=== PATIENT | male | born 1960 | race Caucasian/White ===

== ENCOUNTER 2020-04-13 03:00 | Inpatient (IN) | payer OTHER, MEDICAID ==
[~2020-04-13] VITALS: Ht 185.4 cm; Wt 96.2 kg
[2020-04-13 04:07] LABS: BG BASE EXCESS -6.1 mmol/L (-2.0-2.0); BG DEOXYHEMOGLOBIN 4.7 % (0.0-5.0); BG FRACTION INSPIRED OXYGEN 36; BG HCO3 ACT 17.6 mmol/L (22.0-26.0); BG METHEMOGLOBIN 0.4 % (0.0-1.5); BG OXYGEN SATURATION 95.2 % (92.0-98.5); BG OXYHEMOGLOBIN 93.9 % (94.0-97.0); BG PCO2 30.2 mmHg (35.0-45.0); BG PH 7.383 (7.350-7.450); BG PO2 78.6 mmHg (75.0-100.0); BG SAMPLE SITE RIGHT RADIAL; BG TOTAL HEMOGLOBIN 15.1 g/dL (12.0-18.0); BG VENT MODE NASAL CANNULA
[2020-04-13 04:23] LABS: BASOPHILS % 0.7 % (0.0-2.0); EOSINOPHILS % 2.3 % (0.0-5.0); HEMATOCRIT. 42.1 % (42.0-52.0); LYMPHOCYTES % 22.3 % (20.0-50.0); MEAN CORPUSCULAR HEMOGLOBIN 29.3 pg (28.0-32.0); MEAN CORPUSCULAR VOLUME 87.9 fL (80.0-94.0); MEAN PLATELET VOLUME 8.7 fl (7.4-10.4); MONOCYTES % 6.5 % (2.0-8.0); NEUTROPHILS % 68.2 % (40.0-76.0); PLATELET 241 x1000/uL (130-400); RED BLOOD CELL COUNT 4.79 mill/uL (4.7-6.1)
[2020-04-13 04:31] LABS: CHLORIDE 107 mEq/L (98-107)
[2020-04-13 04:39] LABS: PROTHROMBIN TIME 10.8 sec (9.6-11.0)
[2020-04-13] MEDS ORDERED: CEFTRIAXONE 1 G PREMIX 50 ML IV ONE (04:45)
[2020-04-13] MEDS ORDERED: AZITHROMYCIN 500 MG TABLET PO ONE (04:45)
[2020-04-13] MEDS ORDERED: FUROSEMIDE 40MG/4ML VIAL IVP SCH (05:30)
[2020-04-13 09:50] LABS: CLARITY URINE CLEAR (CLEAR); COLOR URINE YELLOW (YELLOW); KETONES URINE TRACE (NEGATIVE); LEUKOCYTE ESTERASE URINE NEGATIVE (NEGATIVE); NITRITE URINE NEGATIVE (NEGATIVE); OCCULT BLOOD URINE 1+ (NEGATIVE); PROTEIN URINE 3+ (NEGATIVE); SPECIFIC GRAVITY URINE 1.029 (1.005-1.030); UROBILINOGEN URINE 0.2 E.U./dL (0.2-1.0)
[2020-04-13] MEDS ORDERED: DEXTROSE 50% WATER 50ML SYRINGE IV PRN (10:15)
[2020-04-13] MEDS: BLOOD SUGAR DIAGNOSTIC STRIP TEST SCH ×4 (12:19→20:37)
[2020-04-13] MEDS: LOSARTAN POTASSIUM 50 MG TABLET PO SCH (12:20)
[2020-04-13] MEDS: INSULIN LISPRO 100 UNITS/ML SUBCUT SCH ×3 (12:29→20:43)
[2020-04-13] MEDS ORDERED: ACETAMINOPHEN 325MG TABLET PO PRN (17:30)
[2020-04-13] MEDS ORDERED: ONDANSETRON HCL 4MG/2ML INJ IV PRN (17:30)
[2020-04-13] MEDS ORDERED: ENOXAPARIN 100MG/ML SYR SUBCUT SCH (18:00)
[2020-04-13] MEDS ORDERED: ALBUTEROL 6.7GM HFA INHALER ORI SCH (18:00)
[2020-04-13 20:00] VITALS: BP 155/94
[2020-04-13] MEDS ORDERED: IPRATROPIUM/ALBUTEROL 0.5-3(2.5)MG/3ML NEB HHN PRN (20:00)
[2020-04-13 20:02] LABS: BASOPHILS % 1.2 % (0.0-2.0); EOSINOPHILS % 3.4 % (0.0-5.0); HEMATOCRIT. 41.8 % (42.0-52.0); HEMOGLOBIN. 14.1 g/dL (14.0-18.0); LYMPHOCYTES % 32.6 % (20.0-50.0); MEAN CORPUSCULAR HEMOGLOBIN 29.4 pg (28.0-32.0); MEAN CORPUSCULAR VOLUME 87.4 fL (80.0-94.0); MEAN PLATELET VOLUME 8.6 fl (7.4-10.4); MONOCYTES % 9.6 % (2.0-8.0); NEUTROPHILS % 53.2 % (40.0-76.0); PLATELET 193 x1000/uL (130-400); RED BLOOD CELL COUNT 4.78 mill/uL (4.7-6.1); RED CELL DISTRIBUTION WIDTH 14.2 % (11.6-14.6)
[2020-04-13] MEDS: FUROSEMIDE 40MG/4ML VIAL IVP SCH (20:37)
[2020-04-13] MEDS: ENOXAPARIN 40MG/0.4ML SYR SUBCUT SCH (20:42)
[2020-04-13] MEDS ORDERED: INSULIN GLARGINE UD 100 UNITS/ML SYR SUBCUT SCH (22:00)
[2020-04-14] VITALS: BP 145/92
[2020-04-14] MEDS: INSULIN GLARGINE UD 100 UNITS/ML SYR SUBCUT SCH ×3 (00:35→22:14)
[2020-04-14 04:00] VITALS: BP 124/73
[2020-04-14] MEDS: BLOOD SUGAR DIAGNOSTIC STRIP TEST SCH ×4 (04:36→21:00)
[2020-04-14 08:00] VITALS: BP 143/93
[2020-04-14] MEDS ORDERED: DEXAMETHASONE 10 MG/ML VIAL PO SCH (09:00)
[2020-04-14] MEDS ORDERED: ASPIRIN 81MG TABLET PO SCH (09:00)
[2020-04-14] MEDS: LOSARTAN POTASSIUM 50 MG TABLET PO SCH (09:32)
[2020-04-14] MEDS: AZITHROMYCIN 500 MG TABLET PO SCH (09:32)
[2020-04-14] MEDS: CEFTRIAXONE 1,000 MG in DEXTROSE 5% WATER 50 ML IV SCH (09:32)
[2020-04-14] MEDS: FUROSEMIDE 40MG/4ML VIAL IVP SCH ×2 (09:32→22:18)
[2020-04-14] MEDS: INSULIN LISPRO 100 UNITS/ML SUBCUT SCH ×4 (09:33→22:13)
[2020-04-14 09:36] LABS: *AMPHETAMINES SCREEN URINE NEGATIVE (NEGATIVE); *BENZODIAZEPINES SCREEN URINE NEGATIVE (NEGATIVE); *COCAINE SCREEN URINE NEGATIVE (NEGATIVE)
[2020-04-14 09:37] LABS: CANNABINOID URINE SCREEN NEGATIVE (NEGATIVE); METHADONE URINE SCREEN NEGATIVE (NEGATIVE); OPIATES URINE SCREEN NEGATIVE (NEGATIVE); PHENCYCLIDINE URINE SCREEN NEGATIVE (NEGATIVE)
[2020-04-14 09:38] LABS: *BARBITURATES SCREEN URINE NEGATIVE (NEGATIVE)
[2020-04-14 12:00] VITALS: BP 130/80
[2020-04-14 16:00] VITALS: BP 142/92
[2020-04-14 20:00] VITALS: BP 142/91
[2020-04-14] MEDS ORDERED: ATORVASTATIN CALCIUM 40MG TABLET PO SCH (21:00)
[2020-04-14] MEDS: ENOXAPARIN 40MG/0.4ML SYR SUBCUT SCH (22:12)
[2020-04-14] MEDS: CARVEDILOL 6.25 MG TABLET PO SCH (22:12)
[2020-04-15] VITALS: BP 115/66
[2020-04-15 04:00] VITALS: BP 133/82
[2020-04-15] MEDS: BLOOD SUGAR DIAGNOSTIC STRIP TEST SCH ×2 (06:12→11:43)
[2020-04-15] MEDS: INSULIN LISPRO 100 UNITS/ML SUBCUT SCH ×2 (07:15→12:03)
[2020-04-15 07:49] LABS: BASOPHILS % 0.9 % (0.0-2.0); EOSINOPHILS % 6.3 % (0.0-5.0); HEMATOCRIT. 42.9 % (42.0-52.0); HEMOGLOBIN. 14.3 g/dL (14.0-18.0); LYMPHOCYTES % 35.8 % (20.0-50.0); MEAN CORPUSCULAR HEMOGLOBIN 29.3 pg (28.0-32.0); MEAN PLATELET VOLUME 9.2 fl (7.4-10.4); MONOCYTES % 8.2 % (2.0-8.0); NEUTROPHILS % 48.8 % (40.0-76.0); PLATELET 204 x1000/uL (130-400); RED BLOOD CELL COUNT 4.88 mill/uL (4.7-6.1); RED CELL DISTRIBUTION WIDTH 14.3 % (11.6-14.6)
[2020-04-15 08:00] VITALS: BP 132/84
[2020-04-15 08:38] LABS: CHLORIDE 108 mEq/L (98-107)
[2020-04-15] MEDS: CARVEDILOL 6.25 MG TABLET PO SCH (08:53)
[2020-04-15] MEDS: CEFTRIAXONE 1,000 MG in DEXTROSE 5% WATER 50 ML IV SCH (08:53)
[2020-04-15] MEDS: LOSARTAN POTASSIUM 50 MG TABLET PO SCH (08:53)
[2020-04-15] MEDS: FUROSEMIDE 40MG/4ML VIAL IVP SCH (08:53)
[2020-04-15] MEDS: AZITHROMYCIN 500 MG TABLET PO SCH (08:53)
[2020-04-15] MEDS: INSULIN GLARGINE UD 100 UNITS/ML SYR SUBCUT SCH (09:50)
[2020-04-15 12:00] VITALS: BP 129/72
[2020-04-15] MEDS ORDERED: LOSA50TA3 PO (12:13)
[2020-04-15] MEDS ORDERED: FURO-151 MT (12:13)
[2020-04-15] MEDS ORDERED: ALBU18HF2 IH (12:13)
[2020-04-15] MEDS ORDERED: INSU100I28 SQ (12:13)
[2020-04-15] MEDS ORDERED: LIP40 MT (12:13)
[2020-04-15] MEDS ORDERED: SPIR25TA6 MT (12:13)
[2020-04-15] MEDS ORDERED: POTA-79 MT (12:13)
[2020-04-15] MEDS ORDERED: ASPI-1158 MT (12:13)
[2020-04-15] MEDS ORDERED: COR6 PO (12:13)
[2020-04-15] MEDS ORDERED: FLUT1DIS3 INH (12:13)
[2020-04-15 12:35] VITALS: BP 129/72
[2020-04-15 16:00] VITALS: BP 138/80
== END 2020-04-15 15:50 | disposition home or self-care (01) | DRG 720 ==
LOC: ER 03:00 → 7WST 05:53 → EDBEDREQTM 05:58 → EDBEDREQSVC 05:58 → EDBEDREQ 05:58 → ENRESERV 13:47 → 5WST 18:58
PROVIDERS: ADMIT Internal Medicine; ATTEND Internal Medicine
DX: A41.9 Sepsis, unspecified organism (principal); E11.51 Type 2 diabetes mellitus with diabetic peripheral angiopathy without gangrene; I11.0 Hypertensive heart disease with heart failure; E44.1 Mild protein-calorie malnutrition; I50.23 Acute on chronic systolic (congestive) heart failure; E78.5 Hyperlipidemia, unspecified; E87.6 Hypokalemia; J18.9 Pneumonia, unspecified organism; I34.0 Nonrheumatic mitral (valve) insufficiency; J44.0 Chronic obstructive pulmonary disease with (acute) lower respiratory infection; J96.00 Acute respiratory failure, unspecified whether with hypoxia or hypercapnia; N17.0 Acute kidney failure with tubular necrosis; E87.2 Acidosis; M48.02 Spinal stenosis, cervical region; Z20.828 Contact with and (suspected) exposure to other viral communicable diseases; Z82.49 Family history of ischemic heart disease and other diseases of the circulatory system; Z86.73 Personal history of transient ischemic attack (TIA), and cerebral infarction without residual deficits; Z87.891 Personal history of nicotine dependence; Z79.1 Long term (current) use of non-steroidal anti-inflammatories (NSAID); Z79.82 Long term (current) use of aspirin; Z79.2 Long term (current) use of antibiotics; Z79.899 Other long term (current) drug therapy; Z98.1 Arthrodesis status; Z68.28 Body mass index [BMI] 28.0-28.9, adult
CPT/HCPCS: 36415; 36600; 71045; 80048; 80053; 80061; 80305; 81003; 82375; 82728; 82805; 82962; 83036; 83605; 83615; 83880; 84145; 84443; 84484; 85025; 87635; 93005; 93306; 93970; 99291; J0696; J1650; J1815; J1940; J7060

== ENCOUNTER 2022-10-26 18:27 | Inpatient (IN) | payer OTHER ==
[~2022-10-26] VITALS: Ht 180.3 cm; Wt 96.6 kg
[~2022-10-26 18:27] MED LIST: ALBU18HF2 IH; ASPI-1406 MT; COR6 PO; FLUT1DIS3 INH; FURO-151 MT; INSU100I28 SQ; LIP40 MT; LOSA50TA3 PO; POTA-79 MT; SPIR25TA6 MT
[2022-10-26 19:52] LABS: BASOPHILS % 0.6 % (0.0-2.0); EOSINOPHILS % 3.9 % (0.0-5.0); HEMATOCRIT. 37.1 % (42.0-52.0); HEMOGLOBIN. 12.3 g/dL (14.0-18.0); LYMPHOCYTES % 21.6 % (20.0-50.0); MEAN CORPUSCULAR HEMOGLOBIN 29.7 pg (28.0-32.0); MEAN CORPUSCULAR VOLUME 89.9 fL (80.0-94.0); MEAN PLATELET VOLUME 8.4 fl (7.4-10.4); MONOCYTES % 13.1 % (2.0-8.0); NEUTROPHILS % 60.8 % (40.0-76.0); PLATELET 170 x1000/uL (130-400); RED BLOOD CELL COUNT 4.13 mill/uL (4.7-6.1); RED CELL DISTRIBUTION WIDTH 13.9 % (11.6-14.6)
[2022-10-26 19:57] LABS: CHLORIDE 108 mEq/L (98-107)
[2022-10-26 19:59] LABS: PROTHROMBIN TIME 10.3 sec (9.6-11.0)
[2022-10-27] MEDS ORDERED: NICARDIPINE 40MG/200ML PREMIX 200 ML IV PRN (12:00)
[2022-10-27] MEDS: CLOPIDOGREL 75MG TABLET PO SCH (13:00)
[2022-10-27 15:07] VITALS: BP 184/83
[2022-10-27 16:00] VITALS: BP 156/65
[2022-10-27] MEDS ORDERED: ALBUTEROL 6.7GM HFA INHALER INH PRN (16:30)
[2022-10-27] MEDS ORDERED: MAGNESIUM/ALUMINUM HYDROXIDE/SIMETHICONE 30ML UDC PO PRN (17:15)
[2022-10-27] MEDS ORDERED: DEXTROSE 50% WATER 50ML SYRINGE IV PRN (17:15)
[2022-10-27] MEDS ORDERED: ACETAMINOPHEN 325MG TABLET PO PRN ×2 (17:15)
[2022-10-27] MEDS: INSULIN LISPRO 100 UNITS/ML SUBCUT SCH ×2 (18:07→20:35)
[2022-10-27] MEDS: CLONIDINE 0.1MG TABLET PO PRN (18:30)
[2022-10-27 20:00] VITALS: BP 163/70
[2022-10-27] MEDS: CARVEDILOL 6.25 MG TABLET PO SCH (20:22)
[2022-10-27] MEDS: BLOOD SUGAR DIAGNOSTIC STRIP TEST SCH (20:35)
[2022-10-27] MEDS: SODIUM CHLORIDE 0.9% INJ 3ML FLUSH IVF SCH (20:35)
[2022-10-27] MEDS ORDERED: ATORVASTATIN CALCIUM 40MG TABLET PO SCH (21:00)
[2022-10-28] VITALS: BP 168/68
[2022-10-28] MEDS: CLONIDINE 0.1MG TABLET PO PRN ×2 (00:01→18:47)
[2022-10-28 04:00] VITALS: BP 168/70
[2022-10-28 06:10] LABS: BASOPHILS % 0.5 % (0.0-2.0); EOSINOPHILS % 5.8 % (0.0-5.0); HEMATOCRIT. 33.6 % (42.0-52.0); HEMOGLOBIN. 11.5 g/dL (14.0-18.0); LYMPHOCYTES % 30.2 % (20.0-50.0); MEAN CORPUSCULAR HEMOGLOBIN 30.2 pg (28.0-32.0); MEAN CORPUSCULAR VOLUME 88.4 fL (80.0-94.0); MEAN PLATELET VOLUME 8.3 fl (7.4-10.4); NEUTROPHILS % 51.5 % (40.0-76.0); PLATELET 149 x1000/uL (130-400); RED CELL DISTRIBUTION WIDTH 13.3 % (11.6-14.6)
[2022-10-28] MEDS: BLOOD SUGAR DIAGNOSTIC STRIP TEST SCH ×3 (06:48→16:50)
[2022-10-28] MEDS: SODIUM CHLORIDE 0.9% INJ 3ML FLUSH IVF SCH ×2 (06:48→12:13)
[2022-10-28 08:00] VITALS: BP 177/82
[2022-10-28 08:45] LABS: PHOSPHORUS 3.3 mg/dL (2.5-4.9)
[2022-10-28] MEDS: CARVEDILOL 6.25 MG TABLET PO SCH (08:54)
[2022-10-28] MEDS: CLOPIDOGREL 75MG TABLET PO SCH (08:54)
[2022-10-28] MEDS: INSULIN LISPRO 100 UNITS/ML SUBCUT SCH ×3 (08:58→17:24)
[2022-10-28] MEDS ORDERED: ASPIRIN 81MG EC TABLET PO SCH (09:00)
[2022-10-28] MEDS ORDERED: LOSARTAN POTASSIUM 50 MG TABLET PO SCH (09:00)
[2022-10-28] MEDS ORDERED: ALBUTEROL (0.083%) 2.5MG/3ML NEB HHN PRN (09:45)
[2022-10-28 12:00] VITALS: BP 119/79
[2022-10-28 18:39] VITALS: BP 119/79
[2022-10-28 18:47] VITALS: BP 199/85
[2022-10-28] MEDS ORDERED: EZETIMIBE 10MG TABLET PO SCH (19:00)
[2022-10-28] MEDS ORDERED: HYDRALAZINE 20MG/ML VIAL IV NR (19:30)
== END 2022-10-28 22:50 | disposition home or self-care (01) | DRG 305 ==
LOC: ER 18:27 → MICUSO 10-27 04:34 → EDBEDREQ 10-27 04:36 → EDBEDREQDT 10-27 04:36 → EDBEDREQTM 10-27 04:36 → 3WST 10-27 14:52
PROVIDERS: ADMIT Internal Medicine; ATTEND Internal Medicine
PROC: 4A00X4Z Measurement of Central Nervous Electrical Activity, External Approach (ICD-10-PCS; principal; 2022-10-28)
DX: I16.0 Hypertensive urgency (principal); G45.9 Transient cerebral ischemic attack, unspecified; I69.354 Hemiplegia and hemiparesis following cerebral infarction affecting left non-dominant side; I12.9 Hypertensive chronic kidney disease with stage 1 through stage 4 chronic kidney disease, or unspecified chronic kidney disease; N18.9 Chronic kidney disease, unspecified; Z20.822 Contact with and (suspected) exposure to COVID-19; E11.51 Type 2 diabetes mellitus with diabetic peripheral angiopathy without gangrene; E11.22 Type 2 diabetes mellitus with diabetic chronic kidney disease; Z87.891 Personal history of nicotine dependence; Z88.6 Allergy status to analgesic agent; Z88.0 Allergy status to penicillin; Z82.49 Family history of ischemic heart disease and other diseases of the circulatory system; Z83.3 Family history of diabetes mellitus; E78.5 Hyperlipidemia, unspecified
CPT/HCPCS: 36415; 70551; 71045; 80048; 80053; 80061; 82962; 83036; 83735; 84100; 84484; 85025; 87426; 93005; 93880; 95816; 97162; 99291; C9803; J0360; J1815